=== PATIENT | female | born 1975 | race African-American/Black ===

== ENCOUNTER 2017-06-24 16:20 | Emergency (ER) | payer SELFPAY ==
[~2017-06-24] VITALS: Ht 157.5 cm; Wt 60.0 kg
[~2017-06-24 16:20] MED LIST: ALBU6.7H INH; TRAM50 PO; ZITH250T PO
[2017-06-24 16:27] VITALS: BP 128/88; PULSE 120; RESP 18; TEMP 98.6; O2SAT 95
== END 2017-06-24 19:34 | disposition left against medical advice (07) ==
LOC: NED 16:20
DX: Z53.21 Procedure and treatment not carried out due to patient leaving prior to being seen by health care provider (principal)
CPT/HCPCS: 99281

== ENCOUNTER 2017-11-29 09:42 | Emergency (ER) | payer SELFPAY ==
[~2017-11-29] VITALS: Ht 157.5 cm; Wt 60.0 kg
[2017-11-29 09:48] VITALS: BP 144/80; PULSE 80; RESP 16; TEMP 98.2; O2SAT 99
[2017-11-29] MEDS ORDERED: IBUPROFEN 800 MG TAB PO ONE (10:15)
[2017-11-29] MEDS ORDERED: ACETAMINOPHEN/HYDROcodone 325 MG/10 MG TAB PO ONE (10:15)
--- NOTE | 2017-11-29 10:35 | RADRPT ---
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 Left lower back pain. CLINICAL DATA: This is the patient's initial encounter. Patient reports that signs and symptoms have been present for 1 day and indicates a pain score of 10/10. MEDICAL/SURGICAL HISTORY: None. None. COMPARISON: No prior exams available for comparison. FINDINGS: 5 lumbar type vertebral bodies are visualized. There is good preservation of vertebral body and disc space heights. SI joints are normal. CONCLUSION: Negative. Electronically signed by: José Miguel Lopez MD 11/29/2017 10:34 AM EDT
--- NOTE | 2017-11-29 10:36 | PD ---
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 Per patient she was working when this happened. 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 She states that the pain is severe "11 out of 10". Per patient she has no numbness, drooling, weakness. No history of back problems. No possibility of . Denies any abdominal pain. No chest pain or shortness of breath. Has not taken anything for this. Injury occurred less than an hour ago. Nothing was given by [facility]. No previous surgeries to her back. Has no allergies to medication. No bowel movement or urinary issues. PFSH Past Medical History Diminished Hearing: No Immunizations Current: Yes Sickle Cell Disease: Yes Tetanus Vaccination: Unknown Influenza Vaccination: No ?: Not Past Surgical History Surgical History: No Previous Surgery Social History Alcohol Use: No Tobacco Use: No Substance Use: No (marijuana) Allergies-Medications (Allergen,Severity, Reaction): Coded Allergies: No Known Allergies (Unverified Adverse Reaction, Unknown, 11/29/17) Reported Meds & Prescriptions Reported Meds & Active Scripts Active Robaxin (Methocarbamol) 500 Mg Tab 500 Mg PO TID Hydrocodone-Acetaminophen 5-325 mg Tab 1 Tab PO Q6H PRN Diclofenac Sodium DR (Diclofenac Sodium) 75 Mg Tabdr 75 Mg PO BID PRN Review of Systems Except as stated in HPI: all other systems reviewed are Neg Physical Exam Narrative GENERAL: SKIN: Warm and dry. HEAD: Atraumatic. Normocephalic. EYES: Pupils equal and round. No scleral icterus. No injection or drainage. ENT: No nasal bleeding or discharge. Mucous membranes pink and moist. Tongue is midline. No uvula deviation. NECK: Trachea midline. No JVD. CARDIOVASCULAR: Regular rate and rhythm. No murmurs, S3, S4. RESPIRATORY: No accessory muscle use. Clear to auscultation. Breath sounds equal bilaterally. GASTROINTESTINAL: Abdomen soft, non-tender, nondistended. Hepatic and splenic margins not palpable. MUSCULOSKELETAL: Extremities without clubbing, cyanosis, or edema. No obvious deformities. Full range of motion of the upper and lower extremities bilaterally. Patient does have pain with range of motion of the back especially with bending. reproducible pain on the musculature of the lower back. Mainly on the left side. Her leg test negative bilaterally. 2+ pulses bilaterally. Sensation intact bilaterally. No lumbar, thoracic, cervical spine tenderness to palpation. NEUROLOGICAL: Awake and alert. No obvious cranial nerve deficits. Motor grossly within normal limits. Five out of 5 muscle strength in the arms and legs. Normal speech. PSYCHIATRIC: Appropriate mood and affect; insight and judgment normal. Data Data Last Documented VS Vital Signs Date Time Temp Pulse Resp B/P (MAP) Pulse Ox O2 Delivery O2 Flow Rate FiO2 11/29/17 09:48 98.2 80 16 144/80 (101) 99 Orders Orders Acetamin-Hydrocod 325-10 Mg ([place] 10-32 (11/29/17 10:15) Ibuprofen (Motrin) (11/29/17 10:15) Spine, Lumbar Comp W/Obliq (11/29/17 ) Ed Discharge Order (11/29/17 10:56) MDM Medical Decision Making Medical Screen Exam Complete: Yes Emergency Medical Condition: Yes Medical Record Reviewed: Yes Interpretation(s) xray of the lumbar spine showed no sign of acute bony injury. Differential Diagnosis Muscle strain versus muscle spasm versus spinal stenosis versus fracture Narrative Course 42-year-old female that presents to the ED for evaluation of lower back pain. Patient was properly examined and was found to have signs and symptoms consistent appears to be likely muscle strain. Patient was given p.o. pain medications. X-ray order. xray was negative for acute disease. Patient was reassured. Patient given short prescription for the Copaxone, Robaxin, Lortab. Follow-up with PCP. Given note for work. See ED worsening symptoms. Ice or heat as needed. Diagnosis Primary Impression: Acute low back pain Qualified Codes: M54.5 - Low back pain Patient Instructions: General Instructions, Narcotic given in the ED Departure Forms: Tests/Procedures, Work Release Enter return to work date: Dec 02, 2017 Additional Instructions: Take medications as prescribed. Follow-up with PCP. See ED for any worsening symptoms. Do not drink or drive while taking pain medication. Apply ice or heat as needed for pain Med/Other Pt SpecificInfo: Prescription(s) given Scripts Methocarbamol (Robaxin) 500 Mg Tab 500 MG PO TID for Muscle Spasm, #20 TAB 0 Refills Prov: Alexis Read MD 11/29/17 Hydrocodone-Acetaminophen (Hydrocodone-Acetaminophen) 5-325 mg Tab 1 TAB PO Q6H Y for PAIN, #12 TAB 0 Refills Prov: Alexis Read MD 11/29/[address] (Diclofenac Sodium DR) 75 Mg Tabdr 75 MG PO BID Y for PAIN SCALE 1 TO 10, #20 TAB 0 Refills Prov: Alexis Read MD 11/29/17 Disposition: 01 DISCHARGE HOME Condition: Stable Jesus Bedoya Nov 29, 2017 10:36
[2017-11-29] MEDS ORDERED: DICL75TA PO (10:37)
[2017-11-29] MEDS ORDERED: HYDR-3516 PO (10:37)
[2017-11-29] MEDS ORDERED: ROBA500T PO (10:37)
== END 2017-11-29 11:07 | disposition home or self-care (01) ==
LOC: NEPK 09:42
DX: M54.5 Low back pain (principal)
CPT/HCPCS: 72110; 99283